=== PATIENT | male | born 1980 | race Caucasian/White ===

== ENCOUNTER 2021-05-27 05:13 | Emergency (ER) | payer BC, MEDICAID, OTHER | END 2021-05-27 06:30 | disposition home or self-care (01) | LOC: JP.ED 05:13 | DX: J45.31 Mild persistent asthma with (acute) exacerbation (principal); K29.00 Acute gastritis without bleeding; K92.1 Melena; Z79.82 Long term (current) use of aspirin | CPT/HCPCS: 99283; 99284 ==